=== PATIENT | female | born 1970 | race Caucasian/White ===

== ENCOUNTER 2022-07-03 16:42 | Outpatient (CLI) | payer BC, SELFPAY ==
--- NOTE | ~2022-07-03 | MM_ITS ---
EXAMINATION: MM screening omar BI w jamie HISTORY: Screening mammogram, family history of breast cancer in her mother. TECHNIQUE: Craniocaudal and mediolateral oblique 3-D tomosynthesis images were obtained and synthetic 2-D images were generated. CAD analysis was submitted and interpreted. COMPARISON: No prior mammogram is available for comparison at this institution. BREAST PARENCHYMAL COMPOSITION: The breasts are heterogeneously dense, which may obscure small masses . FINDINGS: RIGHT BREAST: There is possible architectural distortion in the posterior third of the outer breast o n the craniocaudal view. LEFT BREAST: There is a mass in the anterior third of the slightly upper, slightly outer breast. IMPRESSION: 1. Bilateral breast findings as above. 2. Additional mammographic views and possible breast ultrasound are recommended. BI-RADS Category 0: Incomplete: Needs additional imaging evaluation. Reviewed, dictated and finalized at location A. [facility] OUTSIDE IMPRESSION: 1. Bilateral breast findings as above. 2. Additional mammographic views and possible breast ultrasound are recommended . BI-RADS Category 0: Incomplete: Needs additional imaging evaluation.
== END 2022-07-03 16:43 | disposition home or self-care (01) ==
LOC: ANHIMG 16:44
PROVIDERS: PCP Obstetrics & Gynecology; Visit Provider Obstetrics & Gynecology
DX: Z12.31 Encounter for screening mammogram for malignant neoplasm of breast (principal); R92.8 Other abnormal and inconclusive findings on diagnostic imaging of breast
CPT/HCPCS: 77063; 77067

== ENCOUNTER 2022-07-26 13:45 | Outpatient (CLI) | payer BC, SELFPAY ==
--- NOTE | ~2022-07-26 | MMUS_ITS ---
EXAMINATION: MM diagnostic omar BI w jamie, US breast BI limited HISTORY: Possible architectural distortion in posterior third of outer right breast on craniocaudal v iew and mass in the anterior third of slightly upper slightly outer left breast on 07/03/2022 screenin g mammogram examinations TECHNIQUE: Additional 3-D tomosynthesis images of both breasts were performed and synthetic 2-D image s were generated. CAD analysis was submitted and interpreted. High resolution bilateral upper outer a nd lower-outer quadrant breast ultrasound was performed. COMPARISON: 07/03/2022 bilateral screening mammogram FINDINGS: MAMMOGRAPHIC FINDINGS: No suspicious mass or architectural distortion is evident on the right. On the left there is low-density approximately 1.4 cm circumscribed mass situated anteriorly in the m id to upper outer breast. ULTRASOUND: Right breast: No suspicious mass or shadowing, cyst or other significant sonographic finding is noted in the outer half of the right breast. Left breast: 12:00 2 cm from nipple, corresponding to mammographic findings: Parallel circumscribed hypoechoic nargis id mass measuring 18 x 11.6 x 18 mm, with some through-transmission. This is likely a benign fibroade noma. No right breast suspicious mass or shadowing. IMPRESSION: 1. Benign finding 2. Routine annual mammographic screening is recommended BI-RADS Category 2: Benign finding(s). Reviewed, dictated and finalized at location A. [facility] IMPRESSION: 1. Benign finding 2. Routine annual mammographic screening is recommended BI-RADS Category 2: Benign finding(s).
== END 2022-07-26 13:46 | disposition home or self-care (01) ==
PROVIDERS: PCP Obstetrics & Gynecology; Visit Provider Obstetrics & Gynecology
DX: R92.8 Other abnormal and inconclusive findings on diagnostic imaging of breast (principal)
CPT/HCPCS: 76642; 77062; 77066; G0279

== ENCOUNTER 2022-11-21 11:53 | Outpatient (CLI) | payer OTHER, SELFPAY ==
--- NOTE | 2022-11-21 12:32 | ECG_ITS ---
Measurements Intervals [place] Rate: 62 P: 27 DC: 168 QRS: -8 QRSD: 85 T: 16 QT: 394 QTc: 402 Interpretive Statements SINUS RHYTHM MINIMAL VOLTAGE CRITERIA FOR LVH, CONSIDER NORMAL VARIANT [MEETS CRITERIA IN ONE OF: R(aVL), S(V1), R(V5), R(V5/V6)+S(V1)] BORDERLINE ECG Electronically Signed On 11-21-2022 13:38:55 CDT by Andrea Joiner M.D.
[2022-11-21 12:51] LABS: Basophils Percent Auto 0.6 % (0.2-1.2); Eosinophils Absolute Auto 0.1 K/mm3 (0-0.3); Eosinophils Percent Auto 2.8 % (0-4.4); Hematocrit 38.6 % (37.0-47.0); Hemoglobin 13.2 g/dL (12.0-15.0); Immature Granulocyte Absolute 0.01 K/mm3 (0.00-0.031); Immature Granulocyte Percent A 0.2 % (0-0.5); Lymphocytes Absolute Auto 1.94 K/mm3 (0.9-3.2); Mean Corpuscular HGB Conc 34.2 g/dl (32-36); Mean Corpuscular Hemoglobin 30.1 pg (26-34); Mean Corpuscular Volume 88.1 fl (80-100); Monocytes Absolute Auto 0.4 K/mm3 (0.1-0.6); Monocytes Percent Auto 7.4 % (2.6-8.5); Neutrophils Absolute Auto 2.5 K/mm3 (1.3-6.7); Platelet Count Result 222 k/mm3 (150-375); Red Blood Count 4.38 M/mm3 (4.2-5.4); Red Cell Distribution Width 13.1 % (11.5-14.5)
[2022-11-21 13:02] LABS: Alanine Aminotransferase 49 U/L (6-35); Albumin Level 4.4 g/dL (3.5-5.1); Alkaline Phosphatase 76 U/L (38-126); Anion Gap 4 mmol/L (8-16); Aspartate Amino Transferase 33 U/L (14-36); Bilirubin,Total 1.2 mg/dL (0.2-1.3); Blood Urea Nitrogen 20 mg/dL (7-17); Calcium 9.2 mg/dL (8.4-10.2); Carbon Dioxide 29 mmol/L (22-30); Chloride 106 mmol/L (98-107); Estimated Glomerular Filt Rate > 60; Glucose 87 mg/dL (65-110); INR 0.9; Potassium 4.2 mmol/L (3.4-5.0); Prothrombin Time 12.1 Seconds (11.1-14.7); Sodium 139 mmol/L (137-145)
== END 2022-11-21 11:54 | disposition home or self-care (01) ==
PROVIDERS: PCP Family Medicine; Visit Provider Urology
DX: Z01.818 Encounter for other preprocedural examination (principal); N81.4 Uterovaginal prolapse, unspecified
CPT/HCPCS: 36415; 80053; 85025; 85610; 85730; 86850; 86900; 86901; 93005

== ENCOUNTER 2022-12-03 00:13 | Day surgery (SDC) | payer BC, OTHER, SELFPAY ==
--- NOTE | 2022-11-21 11:41 | PC.NURSE ---
PRE-OP INSTRUCTIONS, PLEASE READ CAREFULLY Report to the Outpatient Waiting Room, entrance under the green pavilion located off [facility], at time _0600_ on date _12/03/22_. Planned Procedure Time: _0730_. PACK A SMALL OVERNIGHT BAG AND LEAVE IN THE CAR Time changes happen often and if your time is changed the preop area will call you the afternoon before. - You and your visitor will be asked to self-screen and do not enter if you have any COVID symptoms. - A mask is optional within the hospital at this time. -VISITING HOURS 8AM-8PM Patients may have clear liquids (water, carbonated beverages, clear teas, apple juice) until 3 hours prior to surgery (0430 AM) with a maximum of 20 ounces. - No food from midnight until time of surgery Take the following medications with a SIP of water the morning of surgery: _NONE_ DO NOT STOP ANY OF YOUR OTHER PRESCRIPTION MEDICATIONS PRIOR TO SURGERY ?EXCEPT THE FOLLOWING Medications to discontinue per physician _PROBIOTIC 3 DAYS PRIOR TO SURGERY__, Date to take last dose 11/29/22_ Please no make-up, nail cuban, hairspray, perfume, deodorant, or body powder the day of surgery. No jewelry (including any body piercings) or valuables the day of surgery, leave them at home. Please take a shower or bath the night before, or the morning of, surgery with an antibacterial soap. Wear comfortable, loose fitting clothing. - Jewelry must be removed prior to entering the operating room. Rings and piercings that are not removed may be cut off. - The hospital will not accept responsibility for valuables. - Please leave all valuables, including medications, at home the day of surgery. If you are going home after surgery, a licensed special client bus driver must drive you home. - NO public transportation without another adult if you receive anesthesia. - We recommend that an adult stay with you for 24 hours following discharge. - We also recommend that you do not drive, make important decision, drink alcoholic beverages, or take any drugs that were not prescribed by your health care provider for at least 24 hours after your discharge time. Follow any additional instructions given to you from your surgeon. If you or anyone in your household have experienced Covid symptoms in the past week, please notify your surgeon or the nurse liaison at the phone number below for possible testing. Instructions given to _PATIENT_and asked if any additional questions and then verbalized understanding. Patient advised to call surgeon office or pre surgery nurse liaison [phone] if any additional questions.
[2022-11-21 12:17] VITALS: BP 120/74; PULSE 70; RESP 18; TEMP 36.7; O2SAT 98; BMI 32.1
--- NOTE | 2022-12-01 16:36 | PM.IMHP ---
H&P: HPI History of Present Illness Date/Time: 12/01/22 16:36 Chief Complaint: prolapse, stress incontinence Narrative: 52-year-old with prolapse, fibroids, stress incontinence. Opts for surgical repair Review of Systems Review of Systems: All systems reviewed & are unremarkable except as noted in HPI and below PMFSH Past Medical History Medical History Broken arm Broken leg Ectopic Mass of both breasts on mammogram Family History Family History Other Heart disease Hypertension Social History Social History Smoking status: Never smoker Second hand tobacco smoke exposure: No Alcohol intake: never Substance use: never Substance use type: does not use Living arrangements: with family Occupation/Education: occupation Gender identity (if verbalized by the patient): Female Sexual Orientation (if Verbalized by the Patient): Straight or Heterosexual Spiritual care concerns: No Meds Home Medications and Allergies Home Medications Medication Instructions Recorded Confirmed Type Probiotic 1 cap DAILY 11/21/22 11/21/22 History Allergies Allergy/AdvReac Type Severity Reaction Status Date / Time No Known Allergies Allergy Unverified 11/21/22 12:14 Exam Narrative: anterior wall +1 to +2 apex -1 posterior wall minimal prolapse urethral mobility document Assessment and Plan Assessment and plan (1) Uterine prolapse: Code(s): N81.4 - Uterovaginal prolapse, unspecified Status: Acute Assessment and Plan: robotic colpopexy. understands risks of bleeding, infection, damage for an organs, diskitis, damage to the recheck, recurrence of prolapse, dyspareunia, mesh complications. Agrees to proceed (2) BECKY (stress urinary incontinence, female): Code(s): N39.3 - Stress incontinence (female) (male) Status: Acute Assessment and Plan: urethral sling. Understands risks of bleeding, infection, damage to bladder urethra, recurrent or persistent incontinence, obstructive voiding, mesh complications. Agrees to proceed
--- NOTE | 2022-12-02 16:03 | PM.IMHP ---
H&P: HPI History of Present Illness Date/Time: 12/02/22 16:03 Chief Complaint: prolapse Narrative: Lea is a perimenopausal 52yo P1011, who presents for scheduled surgery for hysterectomy and prolapse repairs. She has not had a cycle in >10 months. She is not sexually active. She has perimenopausal symptoms. She also reports a h/o chronic pelvic pain. She had a normal pap smear 03/2022. She has a known cystocele; has seen urology and has multiple other tests scheduled. She has also started having worsening urge symptoms with leakage of urine when she stands. She has a h/o BECKY, but has lost 40lbs and that resolved. She can feel it at the opening and it gets irritated. She reports a burning/dry sensation when she wipes or cleans herself. She is otherwise pretty active in life and bothered by this. She had 1 ; 8lb 11oz. Review of Systems Constitutional: Constitutional: Denies chills, Denies fever(s) and Denies headache(s) Eyes: Eyes: Denies change in vision ENT: Denies dizziness and Denies headache(s) Cardiovascular: Cardiovascular: Denies chest pain and Denies dyspnea Respiratory: Respiratory: Denies cough and Denies dyspnea Gastrointestinal: Gastrointestinal: Denies abdominal pain and Denies change in stool character Genitourinary: Genitourinary: Denies abnormal menses, Reports amenorrhea, Reports pelvic pain, Reports prolapse symptoms, Denies vaginal discharge, Denies vaginal odor and Denies vaginal pruritus Neurologic: Denies dizziness and Denies headache(s) Psychiatric: Psychiatric: Denies anxiety and Denies depression [facility] Past Medical History Medical History Broken arm Broken leg Ectopic Mass of both breasts on mammogram Family History Family History Other Heart disease Hypertension Social History Social History Smoking status: Never smoker Second hand tobacco smoke exposure: No Alcohol intake: never Substance use: never Substance use type: does not use Living arrangements: with family Occupation/Education: occupation Gender identity (if verbalized by the patient): Female Sexual Orientation (if Verbalized by the Patient): Straight or Heterosexual Spiritual care concerns: No Meds Home Medications and Allergies Home Medications Medication Instructions Recorded Confirmed Type Probiotic 1 cap DAILY 11/21/22 11/21/22 History Allergies Allergy/AdvReac Type Severity Reaction Status Date / Time No Known Allergies Allergy Unverified 11/21/22 12:14 Exam Const: General: cooperative, healthy appearing, comfortable and no acute distress Orientation/consciousness: patient oriented x3 Resp: Effort & Inspection: normal respiratory effort Cardio: Rate: regular rate GI: Inspection: normal to inspection GI Palp: No abdominal tenderness and Yes Soft to palpation : Other: deferred to OR Skin: General skin exam: normal color Neuro: General: patient oriented x3 Extrem: General: normal to inspection Psych: Appearance: grossly normal Affect: normal affect Attitude: cooperative Assessment and Plan Assessment and plan (1) Uterine prolapse: Code(s): N81.4 - Uterovaginal prolapse, unspecified Status: Acute (2) Cystocele with prolapse: Code(s): N81.4 - Uterovaginal prolapse, unspecified Status: Acute (3) BECKY (stress urinary incontinence, female): Code(s): N39.3 - Stress incontinence (female) (male) Status: Acute Plan - Proceed with robotic assisted supra-cervical hysterectomy with bilateral salpingectomy - The remaining surgery for prolapse repair/BECKY will be performed by Dr. Mcgill - All risks and benefits of the surgery have been discussed in detail including but not limited to pain, bleeding, infection, or injury to nearby structures
[2022-12-03] VITALS (12 sets, daily range): BP systolic 86–166; BP diastolic 51–107; PULSE 57–97; RESP 12–24; TEMP 35.8–36.8; O2SAT 93–100
[2022-12-03] MEDS: ACETAMINOPHEN 500 MG TABLET 1000 MG PO (07:00)
--- NOTE | 2022-12-03 07:10 | WPDHPUPDATE1 ---
History and Physical Update Update Date/Time: 12/03/22 07:10 History and Physical has been reviewed, including an updated exam of the patient. There are NO changes in the patient's condition. Risks, benefits, and alternatives have been discussed and questions answered. Patient agrees to proceed with procedure.
--- NOTE | 2022-12-03 07:15 | WPDHPUPDATE1 ---
History and Physical Update Update Date/Time: 12/03/22 07:15 History and Physical has been reviewed, including an updated exam of the patient. There are NO changes in the patient's condition. Risks, benefits, and alternatives have been discussed and questions answered. Patient agrees to proceed with procedure.
[2022-12-03] MEDS: LACTATED RINGERS 1,000 ML 30 ML IV CONT ×2 (07:25→11:07)
[2022-12-03] MEDS: KETOROLAC 15 MG/ML VIAL (*BKC) IV PUSH ×2 (07:25→15:20)
--- NOTE | 2022-12-03 07:26 | P.PNAN_ITS ---
Anes - Initial Pre Proc Eval Procedure: Operation Date: 12/03/22 07:30 Proposed Procedures p Robotic Sacrocolpopexy, - Moose Mcgill MD s Urethral Sling - Moose Mcgill MD s Robotic Assisted Laparoscopic Supracervical Hysterectomy with Bilateral Salpingectomy - Helen Kolb MD Date/Time: 12/03/22 07:26 Surgeon: Moose Mcgill MD Pre Op Diagnosis: incomplete uterovaginal prolapse, stess incont, Patient Data Age: 52 Gender: F Height: 1.68 m Weight: 90.4 kg Last Vital Signs Temp 36.7 C 11/21/22 12:17 Pulse 70 11/21/22 12:17 Resp 18 11/21/22 12:17 BP 120/74 11/21/22 12:17 Pulse Ox 98 11/21/22 12:17 O2 Del Method Room Air 11/21/22 12:17 Allergies Allergy/AdvReac Type Severity Reaction Status Date / Time No Known Allergies Allergy Unverified 11/21/22 12:14 Home Medications Medication Instructions Recorded Confirmed Type Probiotic 1 cap DAILY 11/21/22 11/21/22 History Patient hx anesthesia problems: none Family hx anesthesia problems: none Results Review: All pre-operative results and documents have been reviewed as part of the pre- operative evaluation. [facility] Past Medical History Medical History Broken arm Broken leg Ectopic Mass of both breasts on mammogram Family History Family History Other Heart disease Hypertension Social History Social History Smoking status: Never smoker Second hand tobacco smoke exposure: No Alcohol intake: never Substance use: never Substance use type: does not use Living arrangements: with family Occupation/Education: occupation Gender identity (if verbalized by the patient): Female Sexual Orientation (if Verbalized by the Patient): Straight or Heterosexual Spiritual care concerns: No Anes - Eval Final PreProcedure Day of Procedure 12/03/22 07:26 Patient weight: obese Heart: regular rate and rhythm Lungs: clear to auscultation Airway: Mallampati scale class II Neurological: alert and oriented Last oral intake: >/= 8 hours ASA classification: II Emergent: no Anesthetic plan: proceed Anesthesia type and monitoring: general ETT and standard monitoring Results Review: All pre-operative results and documents have been reviewed as part of the pre- operative evaluation. Informed Consent: The patient's anesthetic plan and its attendant risks and benefits were discussed with the patient/family/POA. Questions were solicited and answers prov ided to the satisfaction of the patient/family/POA.
[2022-12-03] MEDS: ceFAZolin 2 GM/D5W 50 ML 2 GM/50 ML BAG IVPB (07:37)
[2022-12-03] MEDS: metroNIDAZOLE 500 MG/ISO 100ML 500 MG/100 ML BAG 100 MG IVPB ×2 (07:45→15:15)
[2022-12-03] MEDS: BUPIVACAINE/EPINEPHRINE 0.25% 10 ML VIAL INFILTRATE (08:29)
--- NOTE | 2022-12-03 08:58 | W.PM.PROC2 ---
Procedure Note - Detailed Date of Procedure 12/03/22 Pre-op Diagnosis incomplete uterovaginal prolapse, stess incont,fibroid uterus Post-op Diagnosis Same Procedure Performed Robotic assisted supracervical hystectomy with bilateral salpingectomy Surgeon Helen Kolb MD Wedding Day Coordinator Mario Anesthesia General Findings Cervix with pin point os, unable to place acorn manipulator. Omental adhesions at the umbilicus taken down without issue. History of ectopic with partial salpingectomy on right side; small adhesions of left tube to abdominal wall. Uterus with multiple fibroids; ~8-10wk size. Normal ovaries bilaterally Description of Procedure Lea was taken to the operating room where she was placed under general anesthesia without issues. She received 2 g Ancef and 500mg Flagyl. She was then prepped and draped in the usual sterile fashion in the dorsal lithotomy position with her legs in low Delroy stirrups and her arms tucked at her side. A time-out was performed. A jonas catheter was placed. Dr. Mcgill was scrubbed in and placed the 5 laparoscopic ports and and docked the robots, and placed the instruments in the abdomen under direct visualization. A bivalve speculum was placed within the vagina. The cervical os was found to be scarred and I was unable to place the acorn uterine manipulator; a probe was then placed within the vagina. I then unscrubbed and went to the robotic console.The omental adhesions to the anterior abdominal wall were easily taken down. I then started my hysterectomy on the right side. The ureter was easily identified transperitoneally and well out of the surgical field. The fallopian tube was elevated and the mesosalpinx was coagulated and transected. The round ligament was clamped, coagulated, and transected. The uterine ovarian artery was then serially clamped, coagulated, and transected with good hemostasis. The broad ligament was then dissected anteriorly and posteriorly skeletonizing the uterine artery. The bladder flap was partially developed on the right side and carried around the left, anteriorly. The uterine artery was then serially clamped and coagulated. Once the vessel was adequately coagulated, it was then transected with good hemostasis. The same procedure was then performed on the left side without complications. The uterus was noted to be devascularized. The uterus was transected off of the cervical stump. The cervical stump was made hemostatic with cautery. The uterus was then cut in half and placed within a bag for removal. The pelvis was then irrigated and suctioned free of all clots and debris. No immediate complications were noted. Good hemostasis was noted. Dr. Mcgill then scrubbed in to perform the remaining portion of the surgery. She will be kept overnight for observation. Estimated Blood Loss 20 Pathology Yes (uterus and tubes) Complications No immediate complications Condition Stable Disposition Observation [facility] Billing Surgery - Charge Forward: Surgery Billing
[2022-12-03] MEDS: MEPERIDINE HCL INJ (*CRX) 50 MG/ML AMPUL 25 MG IV PUSH (11:15)
--- NOTE | 2022-12-03 11:20 | W.PM.PROC2 ---
Procedure Note - Detailed Date of Procedure 12/03/22 Pre-op Diagnosis incomplete uterovaginal prolapse, steelsa incont, Post-op Diagnosis Same Procedure Performed Robotic assisted laparoscopic sacral colpopexy Urethral sling Cystoscopy Surgeon Moose Mcgill MD Anesthesia General Indications this is a woman with uterine prolapse as well as stress incontinence. She desires surgical correction. She is here for the above. She understands risks of bleeding, infection, diskitis, damage to surrounding organs, bowel injury, bowel obstruction, mesh related complications including exposure and extrusion, postoperative voiding dysfunction including incontinence and retention, need for ancillary procedures, dyspareunia, recurrence of prolapse, and other perioperative intraoperative postoperative complications. She agrees to proceed. Findings See below Description of Procedure She was correctly identified. Informed consent obtained. She from the operating room. She was given general anesthesia. She was given appropriate perioperative antibiotics. She was placed a low lithotomy position. Pressure points were padded. A time-out performed. I marked out the skin 3 fingerbreadths cephalad to the umbilicus. I anesthetized the skin. I incised the skin. I dissected down to the fascia. I grasped the fascia with Susan clamps. I entered the fascia sharply in a Taylor type technique. I placed sutures for later fascial closure. I placed a midline trocar. I examined the abdomen. There is no sign of any injury. Under direct vision I placed 2 additional trocars in the right upper quadrant and 2 additional trocars the left upper quadrant. She was placed in steep Trendelenburg. The robot was docked. Her correction officer reformatory completed their portion of the procedure. Please see that operative report for details. I then sat at the console. The Sizer in the vagina created plane on the anterior and posterior vaginal wall. I took great care not to injure the vagina, bladder, or rectum. I introduced the mesh into the abdomen. I sewed the anterior leaflet of mesh on the anterior vaginal wall. I sewed the posterior leaflet of mesh on the posterior vaginal wall. This was done with several sutures of 2 0 Newport-Rob. I reflected the colon laterally. I opened the posterior peritoneum over the sacral promontory. I carried this into the cul-de-sac. I freed up the edges for later retroperitonealization. I located the anterior longitudinal ligament the sacrum. I cleaned off all fatty tissues. I then tensioned my mesh appropriately. I did a vaginal exam the bedside. I assured prolapse reduction without undue tension. I then sewed the proximal leaflet of mesh onto the anterior longitudinal ligament of the sacrum with several sutures of 2 0 Newport-Rob. I then used a 2 0 Monocryl to completely and meticulously retroperitonealized all mesh. I allowed the colon to go back to its normal anatomic location. There is no sign of any impingement. The specimen was then removed. All ports removed. Fascia was tied down. Skin was closed with Monocryl and surgical glue. She was repositioned and prepped for urethral sling. I marked out the inner thigh incisions. I anesthetized the skin and made the incisions. I then anesthetized the anterior vaginal wall at the mid urethra. I made a 1 cm incision. I dissected out laterally taking great care not to injure the refilled vaginal wall. I passed the helical trocars. I did this 1st on the left and then on the right. This was done from the thigh incision towards the vaginal incision. Sling was connected to the trocars and brought out the thigh incision. I tensioned the sling appropriately. I cut and the plastic sheaths. I closed the incision with 2 0 Vicryl. I then performed cystoscopy. There was no tumors or surgical artifact. Both ureters were seen to excrete clear yellow urine. There is no surgical artifact in the bladder or urethr
--- NOTE | 2022-12-03 12:34 | PC.NURSE ---
This patient, Lea Hudson, was received from PACU on 12/03/22 at 1234. Patient/family oriented to unit policies and routines.
[2022-12-03] MEDS: KCL 20 MEQ/D5/0.45% SOD CHL 1,000 ML 100 ML IV CONT ×2 (13:05→22:50)
[2022-12-03] MEDS: ceFAZolin 1 GM/NS 50 ML 1 GM/50 ML BAG IVPB ×2 (14:11→22:50)
[2022-12-03] MEDS: HYDROcodone/acetaminophen (*CRX) 5-325 MG TABLET 1 TAB PO (23:00)
[2022-12-04] MEDS: metroNIDAZOLE 500 MG/ISO 100ML 500 MG/100 ML BAG 100 MG IVPB ×2 (00:10→07:59)
[2022-12-04] MEDS: KETOROLAC 15 MG/ML VIAL (*BKC) IV PUSH ×2 (00:15→08:01)
[2022-12-04 05:05] VITALS: BP 106/56; PULSE 65; RESP 18; TEMP 36.7; O2SAT 97
[2022-12-04] MEDS: ceFAZolin 1 GM/NS 50 ML 1 GM/50 ML BAG IVPB (07:02)
--- NOTE | 2022-12-04 07:17 | PM.GYNPNOP ---
ASSOCIATE PROGRAM MANAGER - A/P Postoperative Procedures: Procedures Operation Date: 12/03/22 07:30 Actual Procedure Side Surgeon p Robotic Sacrocolpopexy, Moose Mcgill MD s Urethral Sling Moose Mcgill MD s Robotic Assisted Laparoscopic Supracervical Hysterectomy with Bilateral Salpingectomy Bilateral Helen Kolb MD Postoperative day: 1 Postoperative status: doing well Postoperative plan: routine post-op care and discharge Time Spent With Patient Time: Total time spent is greater than 50% in coordination of care (as documented) at patient's floor/unit and/or counseling patient: Time with patient: less than 15 minutes ASSOCIATE PROGRAM MANAGER- PN:Subj Post-Op Subjective Date/time seen: 12/04/22 07:17 Interval history: POD#1 Lea reports doing ok this morning. Her pain is not fully controlled; the norco didn't work well and also upset her stomach. She denies any vaginal bleeding. She has not voided since jonas removal. She has passed flatus. She has tolerated regular diet. She has ambulated and denies any symptoms of anemia. Review of Systems Review of Systems: All systems reviewed & are unremarkable except as noted in HPI and below (HPI) Constitutional: Constitutional: Denies chills, Denies fever(s) and Denies headache(s) Eyes: Eyes: Denies change in vision ENT: Denies dizziness and Denies headache(s) Cardiovascular: Cardiovascular: Denies chest pain and Denies rapid heart rate Respiratory: Respiratory: Denies cough Genitourinary: Genitourinary: Denies abnormal vaginal bleeding Neurologic: Denies dizziness and Denies headache(s) Exam Const: General: cooperative, healthy appearing, comfortable and no acute distress Orientation/consciousness: patient oriented x3 Resp: Effort & Inspection: normal respiratory effort Auscultation: clear to auscultation bilaterally Cardio: Rate: regular rate GI: Inspection: normal to inspection and incision (5 LSC incisions ) GI Palp: Yes abdominal tenderness (appropriate) and Yes Soft to palpation Auscultation: normal bowel sounds : Other: normal bleeding on pad Skin: General skin exam: normal color Neuro: General: patient oriented x3 Psych: Appearance: grossly normal Affect: normal affect Attitude: cooperative ASSOCIATE PROGRAM MANAGER - PN: Obj Data Vital Signs Vital Signs: Vital Signs - 24 hr 12/03/22 07:59 12/03/22 11:07 12/03/22 11:20 Temperature 97.8 F 96.5 F L Pulse Rate 67 97 65 Respiratory Rate 16 24 H 12 Blood Pressure 123/76 166/107 H 102/56 L Pulse Oximetry 100 100 100 Oxygen Delivery Room Air Simple Face Mask Simple Face Mask Oxygen Flow Rate 6 10 12/03/22 11:35 12/03/22 11:50 12/03/22 12:05 Temperature 97.5 F L 97.6 F Pulse Rate 62 63 66 Respiratory Rate 12 13 12 Blood Pressure 101/59 L 89/64 L 86/55 L Pulse Oximetry 100 93 100 Oxygen Delivery Simple Face Mask Room Air Room Air Oxygen Flow Rate 10 12/03/22 12:20 12/03/22 12:55 12/03/22 12:50 Temperature 97.9 F Pulse Rate 57 L 68 Respiratory Rate 12 16 Blood Pressure 95/58 L 96/52 L Pulse Oximetry 99 100 100 Oxygen Delivery Nasal Cannula Nasal Cannula Oxygen Flow Rate 2 1 12/03/22 16:25 12/03/22 16:25 12/03/22 19:40 Temperature 97.0 F L 98.2 F Pulse Rate 61 72 Respiratory Rate 16 18 Blood Pressure 100/51 L 109/61 Pulse Oximetry 97 98 Oxygen Delivery Room Air Oxygen Flow Rate 12/03/22 19:40 12/03/22 23:00 12/03/22 23:00 Temperature 98.3 F Pulse Rate 62 Respiratory Rate 18 Blood Pressure 104/55 L Pulse Oximetry 97 Oxygen Delivery Room Air Room Air Oxygen Flow Rate 12/04/22 05:05 12/04/22 05:05 Temperature 98.1 F Pulse Rate 65 Respiratory Rate 18 Blood Pressure 106/56 L Pulse Oximetry 97 Oxygen Delivery Room Air Oxygen Flow Rate Intake/Output Intake/Output: Intake & Output 12/01/22 12/02/22 12/03/22 12/04/22 23:59 23:59 23:59 23:59 Intake Total 2200 1200 Output Total 210 1500 Balance 1989 - Meds/Resul
--- NOTE | 2022-12-04 07:35 | WPDANESPN ---
Anes - Prog Note Post-Op Date/Time: 12/04/22 07:35 Cardiovascular status: normal Respiratory status: normal Airway patency: baseline Mental status: baseline Post-Op hydration status: normal Vital Signs: Last Vital Signs Temp 98.1 F 12/04/22 05:05 Pulse 65 12/04/22 05:05 Resp 18 12/04/22 05:05 BP 106/56 L 12/04/22 05:05 Pulse Ox 97 12/04/22 05:05 O2 Del Method Room Air 12/04/22 05:05 O2 Flow Rate 1 12/03/22 12:50 Pain Score (VAS): 4-5 I/O: Intake & Output 12/03/22 12/03/22 12/04/22 15:59 23:59 07:59 Intake Total 850 1350 1200 Output Total 60 150 1500 Balance 790 1200 -300 Post-procedural complaints: none Patient Feedback: Patient satisfied with anesthetic care.
[2022-12-04] MEDS: oxyCODONE HCL (*CRX) 5 MG TAB IR PO ×2 (08:02→13:23)
[2022-12-04] MEDS: DOCUSATE SODIUM 100 MG CAPSULE PO (08:02)
[2022-12-04] MEDS: ACETAMINOPHEN 500 MG TABLET 1000 MG PO (08:02)
[2022-12-04] MEDS: ENOXAPARIN 30 MG/0.3 ML SYRINGE SUB-Q (08:03)
[2022-12-04 08:15] VITALS: BP 106/53; PULSE 66; RESP 16; TEMP 36.7; O2SAT 95
[2022-12-04] MEDS: CEPHALEXIN 500 MG CAPSULE PO ×2 (09:38→13:23)
== END 2022-12-04 14:21 | disposition home or self-care (01) ==
LOC: ANHSURGERY 11:23 → ANHOB2 12:46
PROVIDERS: Obstetrics & Gynecology; PCP Family Medicine; Visit Provider Urology
PROC: (CPT 57425; principal; 2022-12-03 07:30)
PROC: (CPT 57425; 2022-12-03 07:30)
PROC: (CPT 58542; 2022-12-03 07:30)
DX: N81.2 Incomplete uterovaginal prolapse (principal); N39.3 Stress incontinence (female) (male); D25.1 Intramural leiomyoma of uterus; D25.2 Subserosal leiomyoma of uterus; N73.6 Female pelvic peritoneal adhesions (postinfective); E66.9 Obesity, unspecified; Z68.31 Body mass index [BMI] 31.0-31.9, adult
CPT/HCPCS: 58542; 57425; 57288; S2900 ×2; 36415; 80053; 85025; 85610; 85730; 86850; 86900; 86901; 88307; 93005; 99199; A9270; C1771; C1781; C9290; J0690; J1100; J1650; J1885; J2175; J2250; J2270; J2370; J2405; J2704; J3480; J7030; J7120